=== PATIENT | female | born 1975 | race Caucasian/White ===

== ENCOUNTER 2016-09-16 22:23 | Emergency (ER) | payer OTHER ==
[~2016-09-16] VITALS: Ht 174 cm; Wt 66.0 kg
[2016-09-16 22:24] VITALS: BP 132/79; PULSE 91; RESP 18; TEMP 101.1; O2SAT 96
[2016-09-17 02:04] VITALS: PULSE 91; RESP 18; TEMP 103; O2SAT 99
[2016-09-17] MEDS ORDERED: AMOX875T2 PO (02:04)
[2016-09-17] MEDS ORDERED: ONDANSETRON HCL 4 MG/2 ML VIAL IV PUSH ONE (02:45)
[2016-09-17] MEDS ORDERED: KETOROLAC TROMETHAMINE 30 MG/ML (IVP) VIAL IV PUSH ONE (02:45)
[2016-09-17] MEDS ORDERED: SODIUM CHLOR 0.9% 1000 ML INJ 1,000 ML IV ONE (02:45)
--- NOTE | 2016-09-17 03:00 | RADRPT ---
EXAM DATE/TIME: 09/17/2016 03:01 [place] COMPARISON: No previous studies available for comparison. INDICATIONS : Cough. MEDICAL HISTORY : None. SURGICAL HISTORY : None. ENCOUNTER: Initial ACUITY: 3 days PAIN SCORE: 0/10 LOCATION: Bilateral chest FINDINGS: There is focal dense consolidation left lower lobe characteristic of pneumonia. Right lung clear. Tra ce left pleural fluid. No pneumothorax. CONCLUSION: 1. Left lower lobe pneumonia. Giorgi Arce MD on September 17, 2016 at 2:58 Board Certified Radiologist. This report was verified electronically.
[2016-09-17 03:01] LABS: AUTOMATED NEUTROPHIL # 4.6 TH/MM3 (1.8-7.7); BASOPHIL % 0.4 % (0.0-2.0); EOSINOPHIL % 0.1 % (0.0-4.0); HEMO FLAGS DIFF FINAL; LYMPH % 19.8 % (9.0-44.0); LYMPHOCYTE # 1.4 TH/MM3 (1.0-4.8); MEAN CELL VOLUME 89.3 FL (80.0-100.0); MEAN CORPUSCULAR HEMOGLOBIN 30.1 PG (27.0-34.0); MEAN CORPUSCULAR HGB CONC 33.7 % (32.0-36.0); MONO % 11.9 % (0.0-8.0); NEUT % 67.8 % (16.0-70.0); PLATELET COUNT 142 TH/MM3 (150-450); RED BLOOD COUNT 4.37 MIL/MM3 (4.00-5.30); RED CELL DISTRIBUTION WIDTH 12.9 % (11.6-17.2); WHITE BLOOD COUNT 6.8 TH/MM3 (4.0-11.0)
[2016-09-17 03:02] LABS: BACTERIA, URINE MANY /hpf; BLOOD, URINE MOD (NEG); GLUCOSE,URINE NEG (NEG); KETONE, URINE NEG (NEG); MUCUS URINE FEW /lpf (OCC); NITRITE,URINE NEG (NEG); PH, URINE 6.5 (5.0-8.5); SQUAMOUS EPITHELIAL CELL URINE 5 /hpf (0-5); URINE COLOR YELLOW (YELLW/STRAW)
[2016-09-17 03:04] LABS: COMMENT (UR) CULT NOT INDICATED; CULTURE IF INDICATED CULT NOT INDICATED
[2016-09-17 03:13] LABS: ALT (GPT) 58 U/L (10-53); ANION GAP 7 MEQ/L (5-15); AST (GOT) 55 U/L (15-37); BICARBONATE 28.3 MEQ/L (21.0-32.0); CHLORIDE 102 MEQ/L (98-107); GLOMERULAR FILTRATION RATE 103 ML/MIN (>89); POTASSIUM 3.7 MEQ/L (3.5-5.1); SODIUM (NA) 137 MEQ/L (136-145)
[2016-09-17] MEDS ORDERED: cefTRIAXone INJ 1,000 MG in SODIUM CHLORIDE 0.9% INJ 100 ML IV ONE (03:15)
[2016-09-17] MEDS ORDERED: AZITHROMYCIN INJ 500 MG in SODIUM CHLOR 0.9% 250 ML INJ 250 ML IV ONE (03:15)
[2016-09-17 03:20] LABS: ALKALINE PHOSPHATASE 108 U/L (45-117); BLOOD UREA NITROGEN 6 MG/DL (7-18); TOTAL BILIRUBIN ADULT 0.3 MG/DL (0.2-1.0)
[2016-09-17] MEDS ORDERED: ACETAMINOPHEN 325 MG TAB PO ONE (03:30)
--- NOTE | 2016-09-17 04:39 | PD ---
HPI Chief Complaint: Fever Time Seen by Provider: 02:01 Travel History International Travel<30 days: Yes Contact w/Intl Traveler<30days: Yes Name of Country Traveled to: [place] Traveled to known affect area: Yes History of Present Illness HPI Patient is a 41-year-old female comes in complaining of fever for one week. She says she has a frontal headache and body aches. She also says that recently started to have a cough. She saw her doctor on Thursday who prescribed Augmentin. She has taken 3 doses. She says she continues to run a fever, as high as 102.8 at home. She has been taking Tylenol and ibuprofen for the fever. She says she has some nausea, but denies any abdominal pain. She denies any sick contacts, but she does work at a medical clinic. She denies any shortness of breath. PFSH Past Medical History Medical History: Denies Significant Hx Diminished Hearing: No Tetanus Vaccination: Unknown Influenza Vaccination: Yes ?: Not LMP: 08/31/16 Past Surgical History Surgical History: No Previous Surgery Social History Alcohol Use: No Tobacco Use: No Substance Use: No Allergies-Medications (Allergen,Severity, Reaction): Uncoded Allergies: TREE NUTS (Allergy, Unknown, 09/16/16) Reported Meds & Prescriptions Reported Meds & Active Scripts Active Levaquin (Levofloxacin) 750 Mg Tab 750 Mg PO DAILY 7 Days Reported Amoxicillin-Clavulanate 875-125 mg Tab 875 Mg PO BID not for use in CrCl <30 mL/minute Review of Systems Except as stated in HPI: all other systems reviewed are Neg General / Constitutional: Positive: Fever Eyes: No: Blurred Vision HENT: Positive: Headaches, No: Sore Throat Cardiovascular: No: Chest Pain or Discomfort Respiratory: Positive: Cough, No: Shortness of Breath Gastrointestinal: Positive: Nausea, No: Vomiting, Abdominal Pain Genitourinary: No: Dysuria Musculoskeletal: Positive: Myalgias Skin: No Rash, No Change in Pigmentation Neurologic: No: Weakness, Dizziness Physical Exam Narrative GENERAL: Awake and alert, in no acute distress. SKIN: Focused skin assessment warm/dry. HEAD: Atraumatic. Normocephalic. EYES: Pupils equal and round. No scleral icterus. Extraocular movements intact. ENT: Mucous membranes pink and moist. NECK: Trachea midline. No JVD. CARDIOVASCULAR: Regular rate and rhythm. No murmur appreciated. RESPIRATORY: No accessory muscle use. Breath sounds equal bilaterally. Left lower lung rhonchi GASTROINTESTINAL: Abdomen soft, nondistended. Mild suprapubic tenderness to palpation. No rebound or guarding. MUSCULOSKELETAL: No obvious deformities. No clubbing. No cyanosis. No edema. NEUROLOGICAL: Awake and alert. No obvious cranial nerve deficits. Motor grossly within normal limits. Normal speech. PSYCHIATRIC: Appropriate mood and affect; insight and judgment normal. Data Data Last Documented VS Vital Signs Date Time Temp Pulse Resp B/P Pulse Ox O2 Delivery O2 Flow Rate FiO2 09/17/16 02:04 103.0 91 18 99 09/16/16 22:24 132/79 Orders Complete Blood Count With Diff (09/17/16 02:31) Comprehensive Metabolic Panel (09/17/16 02:31) Urinalysis - C+S If Indicated (09/17/16 02:31) Ed Urine Pregnancytest Poc (09/17/16 02:31) Chest, Pa & Lat (09/17/16 ) Influenzae A/B Antigen (09/17/16 02:31) Sodium Chlor 0.9% 1000 Ml Inj (Ns 1000 M (09/17/16 02:45) Ketorolac Inj (Toradol Inj) (09/17/16 02:45) Ondansetron Inj (Zofran Inj) (09/17/16 02:45) Ceftriaxone Inj (Rocephin Inj) (09/17/16 03:15) Azithromycin Inj (Zithromax Inj) (09/17/16 03:15) Acetaminophen (Tylenol) (09/17/16 03:30) Labs Laboratory Tests Test 09/17/16 02:15 White Blood Count 6.8 TH/MM3 Red Blood Count 4.37 MIL/MM3 Hemoglobin 13.1 GM/DL Hematocrit 39.0 % Mean Corpuscular Volume 89.3 FL Mean Corpuscular Hemoglobin 30.1 PG Mean Corpuscular Hemoglobin 33.7 % Concent Red Cell Distribution Width 12.9 % Platelet Count 142 TH/MM3 Mean Platelet Volume 10.5 FL Neutrophils (%) (Auto) 67.8 % Lymphocytes (%) (Auto) 19.8 % Monocytes (%) (Auto) 11.9 % Eosinophils (%) (Auto) 0.1 % Basophils (%) (Auto) 0.4 % Neutrophils # (Auto) 4.6 TH/MM3 Lymphocytes # (Auto) 1.4 TH/MM3 Monocytes # (Auto) 0.8 TH/MM3 Eosinophils # (Auto) 0.0 TH/MM3 Basophils # (Auto) 0.0 TH/MM3 CBC Comment DIFF FINAL Differential Comment Urine Color YELLOW Urine Turbidity HAZY Urine pH 6.5 Urine Specific [place] 1.019 Urine Protein 30 mg/dL Urine Glucose (UA) NEG mg/dL Urine Ketones NEG mg/dL Urine Occult Blood MOD Urine Nitrite NEG Urine Bilirubin NEG Urine Urobilinogen LESS THAN 2.0 MG/DL Urine Leukocyte Esterase NEG Urine RBC 9 /hpf Urine WBC 6 /hpf Urine Squamous Epithelial 5 /hpf Cells Urine Amorphous Sediment RARE Urine Bacteria MANY /hpf Urine Mucus FEW /lpf Microscopic Urinalysis Comment CULT NOT INDICATED Sodium Level 137 MEQ/L Potassium Level 3.7 MEQ/L Chloride Level 102 MEQ/L Carbon Dioxide Level 28.3 MEQ/L Anion Gap 7 MEQ/L Blood Urea Nitrogen 6 MG/DL Creatinine 0.63 MG/DL Estimat Glomerular Filtration 103 ML/MIN Rate Random Glucose 88 MG/DL Calcium Level 9.2 MG/DL Total Bilirubin 0.3 MG/DL Aspartate Amino Transf 55 U/L (AST/SGOT) Alanine Aminotransferase 58 U/L (ALT/SGPT) Alkaline Phosphatase 108 U/L Total Protein 7.9 GM/DL Albumin 3.3 GM/DL [facility] Medical Decision Making Medical Screen Exam Complete: Yes Emergency Medical Condition: Yes Differential Diagnosis Pneumonia versus influenza versus URI versus UTI versus pyelonephritis Narrative Course Patient is a 41-year-old female comes in complaining of fever for one week with a cough and body aches. Exam shows left lower lobe rhonchi. IV established, labs sent. Patient given IV fluids and Toradol. Labs show mild elevation of her AST and ALT to 55 and 58. Chest x-ray shows a left lower lobe pneumonia. Patient given a dose of Rocephin and azithromycin. Patient reports feeling better, her fever has improved. Patient is asking to go home. We'll discharge with prescription for Levaquin. Advised if she does not start to feel better in the next 2 days, she should return to the ED. Advised follow-up with her doctor. Advised to take ibuprofen for fever. Advised to return to the ED as needed for any worsening symptoms. Diagnosis Primary Impression: Pneumonia Qualified Code: J18.1 - Pneumonia of left lower lobe due to infectious organism Patient Instructions: Bacterial Pneumonia (ED), General Instructions Additional Instructions: Take all of your antibiotic. Take Ibuprofen as needed for pain or fever. Drink plenty of fluids. Return to the ED for any worsening symptoms. Scripts Levofloxacin (Levaquin)750 Mg [id number] Mg PO DAILY 7 Days Ref 0 Prov:Ashley Gilbert MD 09/17/16 Disposition: 01 DISCHARGE HOME Condition: Stable Ashley Gilbert MD Sep 17, 2016 04:39
[2016-09-17] MEDS ORDERED: LEVA750T PO (04:42)
== END 2016-09-17 05:02 | disposition home or self-care (01) ==
LOC: NEPC 22:23
DX: J18.1 Lobar pneumonia, unspecified organism (principal); R51 Headache
CPT/HCPCS: 71020; 80053; 81001; 84703; 85025; 87804; 96365; 96375; 99284; J0456; J0696; J1885; J2405; J7030; J7050